=== PATIENT | female | born 1965 | race American Indian/Alaskan Native ===

== ENCOUNTER 2017-02-18 08:09 | Outpatient (CLI) | payer MEDICARE ==
--- NOTE | 2017-02-18 11:01 | Mammography Report ---
Bilateral digital mammogram with CAD. Comparison is made to previous study on February 16, 2016. Findings: There is intermediate density of the fibroglandular tissue, and the overall pattern is stable. No masses, architectural distortion, or suspicious calcifications are seen. Impression: Stable benign findings. BI-RADS code: 2. Recommendation: Annual screening.
== END 2017-02-18 08:10 | disposition home or self-care (01) ==
LOC: MAMMO 08:09
PROVIDERS: ATTEND Internal Medicine
DX: Z12.31 Encounter for screening mammogram for malignant neoplasm of breast (principal)
CPT/HCPCS: 77067; G0202

== ENCOUNTER 2018-02-19 08:49 | Outpatient (CLI) | payer MEDICARE ==
--- NOTE | 2018-02-19 14:15 | Mammography Report ---
Screening mammogram: Routine views are obtained and compared to exams dating back to June 2009. There is an intermediate density fibroglandular pattern which is symmetric in distribution. There is an asymmetric nodular density in the posterior right breast unchanged since 2008. The breast pattern is generally unchanged. There is however interval placement of a left cardiac pacer battery overlying the upper left breast. CAD used. Impression: Stable mammogram pattern. Recommendation: Annual mammogram followup. BI-RADS CATEGORY: 1 = Negative ACR BI-RADS MAMMOGRAPHIC CODES: 0 = Needs additional imaging evaluation; 1 = Negative; 2 = Benign; 3 = Probably benign; 4 = Suspicious; 5 = Malignant; 6 = Known biopsy-proven malignancy COMMENT: 1. Dense breast tissue, i.e., adenosis, fibrocystic changes, etc., may obscure an underlying neoplasm. 2. Approximately 10% of cancers are not detected with mammography. 3. A negative mammography report should not delay biopsy if a clinically suspicious mass is present.
== END 2018-02-19 08:50 | disposition home or self-care (01) ==
LOC: MAMMO 08:49
PROVIDERS: ATTEND Internal Medicine
DX: Z12.31 Encounter for screening mammogram for malignant neoplasm of breast (principal)
CPT/HCPCS: 77067

== ENCOUNTER 2018-03-09 12:08 | Emergency (ER) | payer MEDICARE ==
[2018-03-09 12:20] VITALS: BP 161/88
[2018-03-09] MEDS ORDERED: ASPIRIN PO ONE (12:20)
[2018-03-09 12:46] LABS: Basophils % (Auto) 0.3 % (0.0-1.8); Eosinophils # (Auto) 0.1 K/mm3 (0.0-0.4); Eosinophils % (Auto) 0.9 % (0.0-4.3); Hematocrit 38.6 % (30.3-42.9); Hemoglobin 13.5 gm/dl (10.1-14.3); Lymphocytes # (Auto) 1.3 K/mm3 (1.2-5.4); Lymphocytes % (Auto) 19.5 % (13.4-35.0); Mean Corpuscular HGB Conc 35 % (30-34); Mean Corpuscular Hemoglobin 31 pg (28-32); Mean Corpuscular Volume 87 fl (79-97); Monocytes # (Auto) 0.6 K/mm3 (0.0-0.8); Monocytes % (Auto) 9.2 % (0.0-7.3); Platelet Count 240 K/mm3 (140-440); Red Blood Count 4.42 M/mm3 (3.65-5.03); Red Cell Distribution Width 14.7 % (13.2-15.2)
[2018-03-09 13:07] LABS: BUN/Creatinine Ratio 18; Blood Urea Nitrogen 9 mg/dL (7-17); Calcium 9.2 mg/dL (8.4-10.2); Hemolysis Index 6
[2018-03-09] MEDS ORDERED: TORADOL IM ONE (13:56)
--- NOTE | 2018-03-09 14:05 | Emergency Department Report ---
ED Chest Pain HPI - General Chief Complaint: Chest Pain Stated Complaint: CHEST PAIN Time Seen by Provider: 03/09/18 13:48 Source: patient Mode of arrival: Ambulatory Limitations: No Limitations - History of Present Illness Initial Comments: 52-year-old female with past medical history of seizures, bipolar disorder, asthma, and vagus nerve stimulator placement presents to the hospital complaining of chest pain 2 days. Pain is the left upper chest radiating to the shoulder and occasionally radiates to the right upper chest. It is intermittent sticking stabbing pain moderate in intensity. Pain is occasionally aggravated with movement. She denies shortness breath, nausea, vomiting, diaphoresis, recent travel, history of PE or DVT, calf tenderness, or edema. Patient presents with elevated blood pressure but denies a previous history of hypertension. She states that she has been under a lot of stress. Her onset past day and has been running around constantly prepping for the and running errands. Previous medical record review patient had a negative stress test here July 2017 with an EF 60% - Related Data Home Medications Medication Instructions Recorded Confirmed Last Taken Sertraline [Zoloft] 100 mg PO QHS 05/18/15 07/19/17 Unknown Topiramate [Topamax] 50 mg PO QHS 05/18/15 07/19/17 Unknown lamoTRIgine [LaMICtal] 150 mg PO QHS 07/19/17 07/19/17 Unknown Previous Rx's Medication Instructions Recorded Last Taken Type Butalb/Acetamin/Caff 50-325-40 1 tab PO Q6H PRN #14 tablet 07/21/17 Unknown Rx [Fioricet] Pantoprazole [Protonix TAB] 40 mg PO QDAY #30 tablet 07/21/17 Unknown Rx Famotidine [Pepcid] 20 mg PO BID #20 tablet 03/09/18 Unknown Rx Ibuprofen [Motrin] 800 mg PO Q8HR PRN #30 tablet 03/09/18 Unknown Rx Allergies Allergy/AdvReac Type Severity Reaction Status Date / Time amoxicillin Allergy Swelling Verified 07/19/17 11:08 Heart Score - HEART Score History: Slightly suspicious EKG: Non-specific Age: 45-65 Risk factors: No known risk factors Troponin: < normal limit HEART Score: 2 ED Review of Systems ROS: Stated complaint: CHEST PAIN Other details as noted in HPI Comment: All other systems reviewed and negative ED Past Medical Hx - Past Medical History Hx Seizures: Yes Hx Psychiatric Treatment: Yes (BIPOLAR) Hx Asthma: Yes Additional medical history: Vagus nerve stimulator - Surgical History Past Surgical History?: Yes Additional Surgical History: NERVE STIMULATOR. surgery for colon cancer. - Social History Smoking Status: Never Smoker Substance Use Type: None - Medications Home Medications: Home Medications Medication Instructions Recorded Confirmed Last Taken Type Sertraline [Zoloft] 100 mg PO QHS 05/18/15 07/19/17 Unknown History Topiramate [Topamax] 50 mg PO QHS 05/18/15 07/19/17 Unknown History lamoTRIgine [LaMICtal] 150 mg PO QHS 07/19/17 07/19/17 Unknown History Butalb/Acetamin/Caff 50-325-40 1 tab PO Q6H PRN #14 tablet 07/21/17 Unknown Rx [Fioricet] Pantoprazole [Protonix TAB] 40 mg PO QDAY #30 tablet 07/21/17 Unknown Rx Famotidine [Pepcid] 20 mg PO BID #20 tablet 03/09/18 Unknown Rx Ibuprofen [Motrin] 800 mg PO Q8HR PRN #30 tablet 03/09/18 Unknown Rx ED Physical Exam - General Limitations: No Limitations - Other Other exam information: General: No limitations, patient is alert in no acute distress Head exam: Atraumatic, normocephalic Eyes exam: Normal appearance ENT: Moist mucous membrane, normal oropharynx Neck exam: Normal inspection, full range of motion, no meningismus nontender Respiratory exam: Clear to auscultation bilateral, no wheezes, rales, crackles Cardiovascular: Normal rate and rhythm, normal heart sounds, chest wall nontender Abdomen: Soft, nondistended, and nontender, with normal bowel sounds, no rebound, or guarding Extremity: Full range of motion normal inspection no deformity, no calf tenderness or edema Back: Normal Inspection, full range of motion, no tenderness Neurologic: Alert, oriented x3, cranial nerves intact, no motor or sensory deficit Psychiatric: normal affect, normal mood Skin: Warm, dry, intact ED Course Vital Signs 03/09/18 03/09/18 12:16 14:26 Temperature 98.8 F Pulse Rate 87 Respiratory 16 18 Rate Blood Pressure 161/88 O2 Sat by Pulse 96 Oximetry ELENA score - Elena Score Age > 65: (0) No Aspirin use within the Past 7 Days: (0) No 3 or more CAD Risk Factors: (0) No 2 or more Angina events in past 24 hrs: (0) No Known CAD with more than 50% Stenosis: (0) No Elevated Cardiac Markers: (0) No ST Deviation Greater than 0.5mm: (0) No ELENA Score: 0 ED Medical Decision Making - Lab Data Result diagrams: 03/09/18 12:31 03/09/18 12:31 Lab Results 03/09/18 03/09/18 03/09/18 Range/Units 12:31 12:31 14:33 WBC 6.8 (4.5-11.0) K/mm3 RBC 4.42 (3.65-5.03) M/mm3 Hgb 13.5 (10.1-14.3) gm/dl Hct 38.6 (30.3-42.9) % MCV 87 (79-97) fl MCH 31 (28-32) pg MCHC 35 H (30-34) % RDW 14.7 (13.2-15.2) % Plt Count 240 (140-440) K/mm3 Lymph % (Auto) 19.5 (13.4-35.0) % [place] % (Auto) 9.2 H (0.0-7.3) % Eos % (Auto) 0.9 (0.0-4.3) % Baso % (Auto) 0.3 (0.0-1.8) % Lymph # 1.3 (1.2-5.4) K/mm3 [place] # 0.6 (0.0-0.8) K/mm3 Eos # 0.1 (0.0-0.4) K/mm3 Baso # 0.0 (0.0-0.1) K/mm3 Seg Neutrophils % 70.1 H (40.0-70.0) % Seg Neutrophils # 4.8 (1.8-7.7) K/mm3 D-Dimer (0-234) ng/mlDDU Sodium 136 L (137-145) mmol/L Potassium 3.7 (3.6-5.0) mmol/L Chloride 102.3 (98-107) mmol/L Carbon Dioxide 25 (22-30) mmol/L Anion Gap 12 mmol/L BUN 9 (7-17) mg/dL Creatinine 0.5 L (0.7-1.2) mg/dL Estimated GFR > 60 ml/min BUN/Creatinine Ratio 18 % Glucose 101 H (65-100) mg/dL Calcium 9.2 (8.4-10.2) mg/dL Troponin T < 0.010 < 0.010 (0.00-0.029) ng/mL 03/09/18 Range/Units 14:33 WBC (4.5-11.0) K/mm3 RBC (3.65-5.03) M/mm3 Hgb (10.1-14.3) gm/dl Hct (30.3-42.9) % MCV (79-97) fl MCH (28-32) pg MCHC (30-34) % RDW (13.2-15.2) % Plt Count (140-440) K/mm3 Lymph % (Auto) (13.4-35.0) % [place] % (Auto) (0.0-7.3) % Eos % (Auto) (0.0-4.3) % Baso % (Auto) (0.0-1.8) % Lymph # (1.2-5.4) K/mm3 [place] # (0.0-0.8) K/mm3 Eos # (0.0-0.4) K/mm3 Baso # (0.0-0.1) K/mm3 Seg Neutrophils % (40.0-70.0) % Seg Neutrophils # (1.8-7.7) K/mm3 D-Dimer 211.11 (0-234) ng/mlDDU Sodium (137-145) mmol/L Potassium (3.6-5.0) mmol/L Chloride (98-107) mmol/L Carbon Dioxide (22-30) mmol/L Anion Gap mmol/L BUN (7-17) mg/dL Creatinine (0.7-1.2) mg/dL Estimated GFR ml/min BUN/Creatinine Ratio % Glucose (65-100) mg/dL Calcium (8.4-10.2) mg/dL Troponin T (0.00-0.029) ng/mL - EKG Data -: EKG Interpreted by Me (possible lvh) EKG shows normal: sinus rhythm, axis (qrs -12), QRS complexes (qrsd 102), ST-T waves (no stemi/t inv) Rate: normal (73) - EKG Data When compared to previous EKG there are: no significant change - Radiology Data Radiology results: report reviewed cxr IMPRESSION: Heart size upper normal. No evidence of acute cardiac or pulmonary process. Electronic stimulating device in place. - Medical Decision Making cp atypical improved with Motrin ddimer neg without risk factors trop neg x2, neg stress test jul 2017 - Differential Diagnosis afebrile chest pain, CT, PE, costochondritis, pneumothorax, muscle strain Critical Care Time: No Critical care attestation.: If time is entered above; I have spent that time in minutes in the direct care of this critically ill patient, excluding procedure time. ED Disposition Clinical Impression: Atypical chest pain, Stress Disposition: - TO HOME OR SELFCARE Is pt being admited?: No Does the pt Need Aspirin: No Condition: Stable Instructions: Chest Pain (ED), Stress (ED) Additional Instructions: Take the medication as prescribed. Return if symptoms worsen. Follow up with your doctor Prescriptions: Famotidine [Pepcid] 20 mg PO BID #20 tablet Ibuprofen [Motrin] 800 mg PO Q8HR PRN #30 tablet PRN Reason: Overdose Referrals: VIVIENNE DOWNEY [Other] - 3-5 Days Time of Disposition: 15:31
--- NOTE | 2018-03-09 15:02 | XRay Report ---
FINAL REPORT PROCEDURE: XR CHEST ROUTINE 2V TECHNIQUE: HISTORY: chest pain COMPARISON: No prior studies are available for comparison. FINDINGS: Heart size upper normal. Pulmonary vasculature not significantly distended. No evidence of pulmonary edema pleural effusion infiltrate or mass. No acute bony abnormalities are seen. Electronic stimulating device is implanted in the left side of the chest with electronic leads projecting to the left side of the cervical spine. IMPRESSION: Heart size upper normal. No evidence of acute cardiac or pulmonary process. Electronic stimulating device in place.
== END 2018-03-09 15:42 | disposition home or self-care (01) ==
LOC: ED 12:08
DX: R07.89 Other chest pain (principal); Z88.1 Allergy status to other antibiotic agents
CPT/HCPCS: 36415; 71046; 80048; 84484; 85025; 85379; 93005; 93010; 96372; 99284; J1885

== ENCOUNTER 2019-04-03 18:54 | Emergency (ER) | payer MEDICARE ==
--- NOTE | 2019-04-03 19:05 | Event Note ---
ED Screening Note ED Screening Note: cc diarrhea for days This initial assessment/diagnostic orders/clinical plan/treatment(s) is/are subject to change based on patients health status, clinical progression and re- assessment by fellow clinical providers in the ED. Further treatment and workup at subsequent clinical providers discretion. Patient/guardian urged not to elope from the ED as their condition may be serious if not clinically assessed and managed. Initial orders include: labs ua
[2019-04-03 20:07] LABS: Hematocrit 38.9 % (30.3-42.9); Hemoglobin 13.6 gm/dl (10.1-14.3); Mean Corpuscular HGB Conc 35 % (30-34); Mean Corpuscular Volume 89 fl (79-97); Platelet Count 322 K/mm3 (140-440); Red Blood Count 4.39 M/mm3 (3.65-5.03); Red Cell Distribution Width 14.4 % (13.2-15.2)
[2019-04-03 20:27] LABS: BUN/Creatinine Ratio 13; Blood Urea Nitrogen 9 mg/dL (7-17)
[2019-04-03 20:28] LABS: Alanine Aminotransferase 13 units/L (7-56); Albumin 4.4 g/dL (3.9-5); Hemolysis Index 14
[2019-04-03] MEDS ORDERED: TORADOL IV ONE (20:30)
[2019-04-03] MEDS ORDERED: NACL 0.9% 1000 ML 1,000 ML IV ONE (20:30)
[2019-04-03] MEDS ORDERED: ZOFRAN IV ONE (20:30)
[2019-04-03] MEDS ORDERED: MORPHINE IV ONE (20:30)
[2019-04-03] MEDS ORDERED: BENTYL IM ONE (20:30)
[2019-04-03 21:51] LABS: Bacteria,Urine 1+ /HPF (Negative); Bilirubin,Urine NEG (Negative); Blood,Urine NEG (Negative); Color,Urine Yellow (Yellow); Mucus,Urine FEW /HPF; Protein,Urine <15 mg/dL mg/dL (Negative); Urobilinogen,Urine < 2.0 mg/dL (<2.0)
--- NOTE | 2019-04-03 22:17 | Cat Scan Report ---
PROCEDURE: CT ABDOMEN PELVIS W CON TECHNIQUE: Computerized axial tomography of the abdomen and pelvis was performed after the IV inject ion of iodinated nonionic contrast. CT DOSE LENGTH PRODUCT: 3154.5 mGycm HISTORY: lower abd pain and severe diarrhea x 3 days COMPARISONS: None . FINDINGS: Visualized lower thorax: No significant abnormality. Liver: Normal size and attenuation. Spleen: Normal size and attenuation. Gallbladder and biliary system: Normal. Pancreas: Normal. Adrenals: Normal. Kidneys: Normal. GI tract: Normal. Lymph nodes and mesentery: Normal. Vasculature: Normal.. Bladder: Normal. Reproductive organs: Normal. Peritoneum: No free fluid. Musculoskeletal structures: No significant abnormality. Other: None. IMPRESSION: Normal examination of the abdomen and pelvis. This document is electronically signed by Nahum Flores MD., April 03 2019 10:15:23 PM ET
--- NOTE | 2019-04-03 22:43 | Emergency Department Report ---
ED Abdominal Pain HPI - General Chief Complaint: Rectal Pain Stated Complaint: RECTAL PAIN Time Seen by Provider: 04/03/19 19:02 Source: patient Mode of arrival: Ambulatory Limitations: No Limitations - History of Present Illness Initial Comments: Patient is a 53-year-old [place] female with past medical history of colon cancer status post resection several years ago who has been cancer free for approximately 3 years complaining of rectal pain with diarrhea for the past 3 days. Patient states that she ate some shrimp fried rice 3 days ago several hours later started having diarrhea. Patient states she feels pain at the anus that radiates to the lower abdomen. Patient denies having any hematochezia. Patient states that she constantly has the urge that she has to have a bowel movement. Stools are loose. Patient states she does have a bowel movement there is a burning sensation. Patient states she feels raw and inflamed secondary to wiping. Pain is 10 out of 10 in severity. Patient also states that she's felt weak but denies any nausea vomiting fevers or chills. Severity scale (0 -10): 10 - Related Data Home Medications Medication Instructions Recorded Confirmed Last Taken Sertraline [Zoloft] 100 mg PO QHS 05/18/15 07/19/17 Unknown Topiramate [Topamax] 50 mg PO QHS 05/18/15 07/19/17 Unknown lamoTRIgine [LaMICtal] 150 mg PO QHS 07/19/17 07/19/17 Unknown Previous Rx's Medication Instructions Recorded Last Taken Type Butalb/Acetamin/Caff 50-325-40 1 tab PO Q6H PRN #14 tablet 07/21/17 Unknown Rx [Fioricet 50-325-40] Pantoprazole [Protonix TAB] 40 mg PO QDAY #30 tablet 07/21/17 Unknown Rx Famotidine [Pepcid] 20 mg PO BID #20 tablet 03/09/18 Unknown Rx Ibuprofen [Motrin] 800 mg PO Q8HR PRN #30 tablet 03/09/18 Unknown Rx Dicyclomine [Bentyl] 20 mg PO QID #10 tablet 04/03/19 Unknown Rx Ibuprofen [Motrin 800 MG tab] 800 mg PO Q8HR PRN #10 tablet 04/03/19 Unknown Rx traMADol [Ultram] 50 mg PO Q6HR PRN #12 tablet 04/03/19 Unknown Rx Allergies Allergy/AdvReac Type Severity Reaction Status Date / Time amoxicillin Allergy Swelling Verified 07/19/17 11:08 ED Review of Systems ROS: Stated complaint: RECTAL PAIN Other details as noted in HPI Comment: All other systems reviewed and negative ED Past Medical Hx - Past Medical History Previous Medical History?: Yes Hx Seizures: Yes Hx Psychiatric Treatment: Yes (BIPOLAR) Hx Asthma: Yes Additional medical history: Vagus nerve stimulator - Surgical History Past Surgical History?: Yes Additional Surgical History: NERVE STIMULATOR. surgery for colon cancer. - Social History Smoking Status: Never Smoker Substance Use Type: None - Medications Home Medications: Home Medications Medication Instructions Recorded Confirmed Last Taken Type Sertraline [Zoloft] 100 mg PO QHS 05/18/15 07/19/17 Unknown History Topiramate [Topamax] 50 mg PO QHS 05/18/15 07/19/17 Unknown History lamoTRIgine [LaMICtal] 150 mg PO QHS 07/19/17 07/19/17 Unknown History Butalb/Acetamin/Caff 50-325-40 1 tab PO Q6H PRN #14 tablet 07/21/17 Unknown Rx [Fioricet 50-325-40] Pantoprazole [Protonix TAB] 40 mg PO QDAY #30 tablet 07/21/17 Unknown Rx Famotidine [Pepcid] 20 mg PO BID #20 tablet 03/09/18 Unknown Rx Ibuprofen [Motrin] 800 mg PO Q8HR PRN #30 tablet 03/09/18 Unknown Rx Dicyclomine [Bentyl] 20 mg PO QID #10 tablet 04/03/19 Unknown Rx Ibuprofen [Motrin 800 MG tab] 800 mg PO Q8HR PRN #10 tablet 04/03/19 Unknown Rx traMADol [Ultram] 50 mg PO Q6HR PRN #12 tablet 04/03/19 Unknown Rx ED Physical Exam - General Limitations: No Limitations General appearance: alert, in no apparent distress - Head Head exam: Present: atraumatic, normocephalic - Eye Eye exam: Present: normal appearance - ENT ENT exam: Present: mucous membranes moist - Neck Neck exam: Present: normal inspection - Respiratory Respiratory exam: Present: normal lung sounds bilaterally. Absent: respiratory distress, wheezes, rales, rhonchi - Cardiovascular Cardiovascular Exam: Present: regular rate, normal rhythm, normal heart sounds. Absent: systolic murmur, diastolic murmur, rubs, gallop - GI/Abdominal GI/Abdominal exam: Present: soft, normal bowel sounds. Absent: distended, tenderness, guarding, rebound, rigid - Extremities Exam Extremities exam: Present: normal inspection - Back Exam Back exam: Present: normal inspection - Neurological Exam Neurological exam: Present: alert, oriented X3 - Psychiatric Psychiatric exam: Present: normal affect, normal mood - Skin Skin exam: Present: warm, dry, intact, normal color. Absent: rash ED Course Vital Signs 04/03/19 04/03/19 04/03/19 20:30 21:06 21:08 Temperature 98.2 F Pulse Rate 88 Respiratory 16 16 16 Rate Blood Pressure 134/88 [Left] O2 Sat by Pulse 99 Oximetry ED Medical Decision Making - Lab Data Result diagrams: 04/03/19 19:46 04/03/19 19:46 Lab Results 04/03/19 04/03/19 04/03/19 Range/Units 19:46 19:46 21:37 WBC 10.9 (4.5-11.0) K/mm3 RBC 4.39 (3.65-5.03) M/mm3 Hgb 13.6 (10.1-14.3) gm/dl Hct 38.9 (30.3-42.9) % MCV 89 (79-97) fl MCH 31 (28-32) pg MCHC 35 H (30-34) % RDW 14.4 (13.2-15.2) % Plt Count 322 (140-440) K/mm3 Sodium 139 (137-145) mmol/L Potassium 3.7 (3.6-5.0) mmol/L Chloride 100.0 (98-107) mmol/L Carbon Dioxide 27 (22-30) mmol/L Anion Gap 16 mmol/L BUN 9 (7-17) mg/dL Creatinine 0.7 (0.7-1.2) mg/dL Estimated GFR > 60 ml/min BUN/Creatinine Ratio 13 % Glucose 95 (65-100) mg/dL Calcium 10.0 (8.4-10.2) mg/dL Total Bilirubin 0.50 (0.1-1.2) mg/dL AST 16 (5-40) units/L ALT 13 (7-56) units/L Alkaline Phosphatase 61 (35-129) units/L Total Protein 7.6 (6.3-8.2) g/dL Albumin 4.4 (3.9-5) g/dL Albumin/Globulin Ratio 1.4 % Lipase 17 (13-60) units/L Urine Color Yellow (Yellow) Urine Turbidity Slightly-cloudy (Clear) Urine pH 6.0 (5.0-7.0) Ur Specific [place] 1.042 H (1.003-1.030) Urine Protein <15 mg/dl (Negative) mg/dL Urine Glucose (UA) Neg (Negative) mg/dL Urine Ketones Neg (Negative) mg/dL Urine Blood Neg (Negative) Urine Nitrite Neg (Negative) Urine Bilirubin Neg (Negative) Urine Urobilinogen < 2.0 (<2.0) mg/dL Ur Leukocyte Esterase Sm (Negative) Urine WBC (Auto) 3.0 (0.0-6.0) /HPF Urine RBC (Auto) 2.0 (0.0-6.0) /HPF U Epithel Cells (Auto) 4.0 (0-13.0) /HPF Urine Bacteria (Auto) 1+ (Negative) /HPF Urine Mucus Few /HPF - Radiology Data PROCEDURE: CT ABDOMEN PELVIS W CON TECHNIQUE: Computerized axial tomography of the abdomen and pelvis was performed after the IV injection of iodinated nonionic contrast. CT DOSE LENGTH PRODUCT: 3154.5 mGycm HISTORY: lower abd pain and severe diarrhea x 3 days COMPARISONS: None . FINDINGS: Visualized lower thorax: No significant abnormality. Liver: Normal size and attenuation. Spleen: Normal size and attenuation. Gallbladder and biliary system: Normal. Pancreas: N ormal. Adrenals: Normal. Kidneys: Normal. GI tract: Normal. Lymph nodes and mesentery: Normal. Vasculature: Normal.. Bladder: Normal. Reproductive organs: Normal. Peritoneum: No free fluid. Musculoskeletal structures: No significant abnormality. Other: None. IMPRESSION: Normal examination of the abdomen and pelvis. This document is electronically signed by Nahum Sol MD., April 03 2019 10:15:23 PM ET Transcribed By: [facility] Dictated By: LAMONT SOL MD Electronically Authenticated By: LAMONT SOL MD Signed Date/Time: 04/03/192216 DD/ 22 TD/TT: 04/03/192122 - Medical Decision Making Differential includes colitis diverticulitis proctitis enteritis. Patient is a 53-year-old [place] female who is presenting with 3 days of diarrhea. Patient's CT shows no inflammation of the thousand cells. Patient's will be discharged home with medications for symptomatically relief. Patient states that the Bentyl shot didn't help relief her symptoms tremendously. Critical care attestation.: If time is entered above; I have spent that time in minutes in the direct care of this critically ill patient, excluding procedure time. ED Disposition Clinical Impression: Enteritis Disposition: DC-01 TO HOME OR SELFCARE Is pt being admited?: No Does the pt Need Aspirin: No Condition: Stable Instructions: Acute Diarrhea (ED) Referrals: ANDREIA UPTON MD [Primary Care Provider] - 3-5 Days Time of Disposition: 22:42
[2019-04-03 23:01] VITALS: BP 135/83
== END 2019-04-03 23:01 | disposition home or self-care (01) ==
LOC: ED 18:54
DX: K52.9 Noninfective gastroenteritis and colitis, unspecified (principal); F31.9 Bipolar disorder, unspecified; J45.909 Unspecified asthma, uncomplicated; Z98.890 Other specified postprocedural states; Z85.038 Personal history of other malignant neoplasm of large intestine; Z88.1 Allergy status to other antibiotic agents
CPT/HCPCS: 36415; 74177; 80053; 81001; 83690; 85027; 96361; 96372; 96374; 96375; 99284; J0500; J1885; J2270; J2405; J7030; Q9967

== ENCOUNTER 2019-04-16 10:17 | Outpatient (CLI) | payer MEDICARE ==
--- NOTE | 2019-04-16 16:25 | Mammography Report ---
BILATERAL DIGITAL SCREENING MAMMOGRAM with CAD: 04/16/19 10:17:00 CLINICAL: Routine screening. COMPARISON:02/19/18 FINDINGS: The breasts are mostly fatty with a few bilateral residual retroareolar fibroglandular densities.A pacemaker obscures a portion of the left upper breast. No mass, architectural distortion or suspicious calcifications. IMPRESSION: No mammographic evidence of malignancy. BI-RADS CATEGORY: 2 -- Benign RECOMMENDATION: Routine mammographic screening in one year. COMMENT: Patient follow-up letters are generated by our [employer] application.
== END 2019-04-16 10:18 | disposition home or self-care (01) ==
LOC: MAMMO 10:17
PROVIDERS: ATTEND Internal Medicine
DX: Z12.31 Encounter for screening mammogram for malignant neoplasm of breast (principal); J45.909 Unspecified asthma, uncomplicated
CPT/HCPCS: 77067